=== PATIENT | female | born 1955 | race Caucasian/White ===

== ENCOUNTER 2024-06-06 08:17 | Emergency (ER) | payer OTHER ==
[~2024-06-06] VITALS: Ht 154.9 cm; Wt 67.1 kg
[2024-06-06 08:44] VITALS: TEMP 97
[2024-06-06 08:57] LABS: BASOPHILS # (AUTO) 0.1 X10'3 (0-0.2); BASOPHILS % (AUTO) 1.1 % (0-1); EOSINOPHILS # (AUTO) 0.2 X10'3 (0-0.9); EOSINOPHILS % (AUTO) 3.4 % (0-6); HEMATOCRIT 35.8 % (35.0-45.0); HEMOGLOBIN 11.3 g/dl (12.0-16.0); LYMPHOCYTES # (AUTO) 1.7 X10'3 (1.1-4.8); LYMPHOCYTES % (AUTO) 26.1 % (21-51); MEAN CORPUSCULAR HEMOGLOBIN 21.1 PG (27.0-31.0); MEAN CORPUSCULAR HGB CONC 31.5 g/dL (33.0-36.5); MEAN CORPUSCULAR VOLUME 67.2 FL (78-98); MEAN PLATELET VOLUME 7.4 FL (7.4-10.4); MONOCYTES # (AUTO) 0.4 X10'3 (0-0.9); MONOCYTES % (AUTO) 6.8 % (2-12); NEUTROPHILS % (AUTO) 62.6 % (42-75); PLATELET COUNT 384 X10'3 (140-440); RED BLOOD COUNT 5.33 X10'6 (4.20-5.60); RED CELL DISTRIBUTION WIDTH 19.1 % (11.5-14.5); WHITE BLOOD COUNT 6.3 X10'3 (4.5-11.0)
[2024-06-06 09:11] LABS: ALANINE AMINOTRANSFERASE 15 U/L (12-78); ALBUMIN 3.7 G/DL (3.4-5.0); ALKALINE PHOSPHATASE 80 IU/L (46-116); ANION GAP 8 (8-16); ASPARTATE AMINO TRANSFERASE 14 U/L (10-37); BILIRUBIN,TOTAL 0.5 MG/DL (0.1-1.0); BLOOD UREA NITROGEN 11 MG/DL (7-18); BUN/CREATININE RATIO 14.1 (10.0-20.0); CALCIUM 8.9 MG/DL (8.5-10.1); CHLORIDE 106 MMOL/L (99-107); CREATININE 0.78 MG/DL (0.40-0.90); GLUCOSE 93 MG/DL (70-104); POTASSIUM 3.9 MMOL/L (3.5-5.1); SODIUM 141 MMOL/L (135-145); TOTAL CARBON DIOXIDE 27.2 MMOL/L (24-32); TOTAL PROTEIN 7.5 G/DL (6.4-8.2); eCRCL 53 ML/MIN; eGFR 74 ML/MIN
[2024-06-06 09:18] LABS: PRO BRAIN NATRIURETIC PEPTIDE 116 PG/ML (0-125)
[2024-06-06] MEDS: nitroGLYCERIN 0.4mg SUBLingual tab SL PRN (10:00)
[2024-06-06] MEDS: aspirin 81mg tab.chew PO ONE (10:00)
[2024-06-06 10:02] LABS: ANISOCYTOSIS 2+; MICROCYTOSIS 2+; PLATELET ESTIMATE NORMAL
[2024-06-06 10:03] LABS: BURR CELLS FEW
[2024-06-06 10:04] LABS: ELLIPTOCYTES FEW; SCHISTOCYTES FEW
[2024-06-06] MEDS ORDERED: LOP25T PO (10:29)
[2024-06-06] MEDS ORDERED: NITR0.4T51 SL (10:29)
[2024-06-06 10:57] VITALS: BP 125/79; PULSE 68; RESP 13; O2SAT 98
== END 2024-06-06 10:58 | disposition home or self-care (01) ==
LOC: ER 08:18
DX: R07.9 Chest pain, unspecified (principal); E11.9 Type 2 diabetes mellitus without complications; I10 Essential (primary) hypertension; Z88.0 Allergy status to penicillin; Z88.2 Allergy status to sulfonamides; Z98.84 Bariatric surgery status
CPT/HCPCS: 36415; 71045; 80053; 83880; 84484; 85008; 85025; 93005; 99285

== ENCOUNTER 2024-06-08 13:38 | Outpatient (CLI) | payer BC ==
[~2024-06-08 13:38] MED LIST: LOP25T PO; NITR0.4T51 SL
[2024-06-08 14:09] LABS: BASOPHILS # (AUTO) 0.1 X10'3 (0-0.2); BASOPHILS % (AUTO) 1.1 % (0-1); EOSINOPHILS # (AUTO) 0.2 X10'3 (0-0.9); HEMATOCRIT 32.9 % (35.0-45.0); HEMOGLOBIN 10.4 g/dl (12.0-16.0); LYMPHOCYTES % (AUTO) 25.9 % (21-51); MEAN CORPUSCULAR HEMOGLOBIN 21.3 PG (27.0-31.0); MEAN CORPUSCULAR HGB CONC 31.7 g/dL (33.0-36.5); MEAN CORPUSCULAR VOLUME 67.2 FL (78-98); MEAN PLATELET VOLUME 7.3 FL (7.4-10.4); MONOCYTES # (AUTO) 0.4 X10'3 (0-0.9); MONOCYTES % (AUTO) 5.6 % (2-12); NEUTROPHILS # (AUTO) 4.9 X10'3 (1.8-7.7); NEUTROPHILS % (AUTO) 64.4 % (42-75); PLATELET COUNT 360 X10'3 (140-440); RED BLOOD COUNT 4.89 X10'6 (4.20-5.60); WHITE BLOOD COUNT 7.5 X10'3 (4.5-11.0)
[2024-06-08 14:24] LABS: TOTAL IRON BINDING CAPACITY 500 UG/DL (259-388)
[2024-06-08 15:07] LABS: % IRON SATURATION 3 % (11-46); IRON 16 UG/DL (49-151)
== END 2024-06-08 23:59 | disposition home or self-care (01) ==
LOC: LAB 13:38
PROVIDERS: ATTEND Nurse Practitioner
DX: D64.9 Anemia, unspecified (principal)
CPT/HCPCS: 36415; 82607; 82746; 83540; 83550; 85025

== ENCOUNTER 2024-10-12 12:23 | Emergency (ER) | payer BC ==
[~2024-10-12] VITALS: Ht 154.9 cm; Wt 59.1 kg
[~2024-10-12 12:23] MED LIST changes: -NITR0.4T51 SL
--- NOTE | 2024-10-12 12:53 | Physician Documentation ---
History of Present Illness ~ Chief Complaint: Abdominal Pain Stated Complaint: ABDOMINAL PAIN Time Seen by MD: 12:36 Primary Medical Doctor: Bess Forman Source: patient Mode of Arrival: Ambulatory Exam Limitations: no limitations HPI Chief Complaint: Abdominal pain Caveat: None Independent Historians: History of Present Illness: Patient is a healthy 69-year-old woman who comes in complaining of diffuse sharp abdominal pain that is constant but waxes and wanes. This began mid day Wednesday with the associated diarrhea. Patient has had associated nausea but no vomiting. Patient does take some opiates for chronic back pain. Patient has had a decreased now in her bowel movements. But is passing gas. No no blood in the stool. No dysuria, no urgency or frequency. No alleviating or exacerbating factors. Review of systems: All systems were reviewed and are negative except for what is indicated in the history of present illness. Past Medical History: GERD Past Surgical History: Cataract surgery today, gastric bypass with hiatal hernia repair eight years ago, abdominal wall hernia repair x2 Social History: Tobacco use, no alcohol use, no drug use Medications: Reviewed as documented Nursing Notes Allergies: Reviewed as documented in Nursing Notes Medication Reconciliation Allergies: Uncoded Allergies: PENICILLIN (Allergy, Mild, RASH, 06/06/24) SULFA (Allergy, Mild, RASH, 06/06/24) Scheduled Metoprolol Tartrate* (Lopressor tablet*), 12.5 MG PO BID Review of Systems All Other Systems at this time: Reviewed and Negative ROS Patient denies any other acute symptoms other than above. All other systems are negative Physical Exam Vital Signs: RN Vital Signs have been reviewed: Yes, Temperature: 98.2, Heart Rate: 71, Respiratory Rate: 16, BP: 142/84, Pulse Oximetry: 98, Weight: 59.090 Oxygen Flow Rate: 0 Pulse Oximetry Reflects: adequate oxygenation Physical Exam General Appearance: Mild distress HEENT: Normal OP, moist oral mucosa, PERRL, EOMI Neck: supple, normal ROM, trachea midline Pulmonary: No respiratory distress, CTA, BS equal Cardiac: RRR, no murmur, rub or gallop, GI: nondistended, soft, left lower quadrant tenderness, hyperactive bowel sounds, dull to percussion, no guarding, no rebound Extremities: normal ROM, no swelling, non-tender Skin: intact, dry, warm, no rashes Neuro: AAOx3, speech is clear, no focal motor weakness Psych: normal affect, good eye contact, no apparent hallucination, normal speech Progress Results/Orders Results/Orders Orders - MIKE MALDONADO MD Cbc/Diff (10/12/24 12:47) Urinalysis, Cult If Indicated (10/12/24 12:47) Ct Abdomen Pelvis (10/12/24 12:47) Monitor (10/12/24 12:47) Nothing By Mouth (10/12/24 Dinner) Man Diff (10/12/24 13:07) Completed Orders - MIKE MALDONADO MD Lipase (10/12/24 12:47) Ct Abdomen Pelvis (10/12/24 12:47) BMP (10/12/24 12:47) Vital Signs 10/12/24 10/12/24 10/12/24 12:24 12:44 13:30 Temp 98.2 98.5 Pulse 71 62 58 Resp 16 18 18 B/P (MAP) 142/84 145/73 (97) 123/71 (88) Pulse Ox 98 98 98 O2 Flow Rate 0 0 0 Laboratory Tests Test 10/12/24 13:07 White Blood Count 10.3 Red Blood Count 5.23 Hemoglobin 11.0 L Hematocrit 34.9 L Mean Corpuscular Volume 66.7 L Mean Corpuscular Hemoglobin 21.0 L Mean Corpuscular Hemoglobin Concent 31.5 L Red Cell Distribution Width 20.5 H Platelet Count 377 Mean Platelet Volume 7.6 Neutrophils (%) (Auto) 71.6 Lymphocytes (%) (Auto) 16.7 L Monocytes (%) (Auto) 8.2 Eosinophils (%) (Auto) 2.5 Basophils (%) (Auto) 1.0 Neutrophils # (Auto) 7.4 Lymphocytes # (Auto) 1.7 Monocytes # (Auto) 0.8 Eosinophils # (Auto) 0.3 Basophils # (Auto) 0.1 CBC Comment Sodium Level 141 Potassium Level 3.7 Chloride Level 105 Carbon Dioxide Level 25.5 Anion Gap 11 Blood Urea Nitrogen 11 Creatinine 0.82 Estimated GFR/1.73 m2 69 BUN/Creatinine Ratio 13.4 Glucose Level 97 Calcium Level 9.3 Albumin 3.6 Lipase 42 Chemistry Comments Medical Decision Making Findings Differential diagnosis includes but is not limited to: Small-bowel obstruction, acute diverticulitis, cecal volvulus, sigmoid volvulus, ileus, constipation, cholecystitis, appendicitis, pancreatitis Abdomen and pelvis CT scan without IV contrast, indication: Abdominal pain Impression: Acute diverticulitis at the proximal sigmoid colon. Cholelithiasis. Gastric sleeve surgery. Small hiatal hernia. Laboratory data independent interpretation: CBC: White blood cell count is normal at 10.3, moderate anemia with a hemoglobin of 11 BMP: Normal Lipase: Normal at 42 Emergency department course/medical decision-making: Patient presents with a abdominal pain and left lower quadrant tenderness. Patient is found to have acute sigmoid diverticulitis without perforation or abscess. Patient will be started on Cipro and Flagyl. Patient does not wish to be admitted for IV antibiotics. Patient is requesting Tylenol No. 3 for pain. Patient is afebrile and hemodynamically stable. Patient is stable for discharge. Test results treatment plan and all of the above reviewed with her and her . Departure Time of Disposition: 14:44 Disposition: 01 HOME / SELF CARE / HOMELESS Impression: Primary Impression: Diverticulitis Discharge Instructions: Diverticulitis, [id number] Additional Instructions: RETURN TO THE ER IF YOUR SYMPTOMS WORSEN. Prescriptions Acetaminophen With Codeine (Tylenol W/Codeine #3 Tab) 300 Mg-30 Mg Tablet 1 TAB PO Q6H PRN PRN for pain for 5 Days, #20 TAB Prov: MIKE MALDONADO MD 10/12/24 Ciprofloxacin HCl (Ciprofloxacin HCl) 500 Mg Tab 1 TAB PO Q12H for 10 Days, #20 TAB Prov: MIKE MALDONADO MD 10/12/24 Metronidazole* (Flagyl*) 500 Mg Tablet 1 TAB PO Q8H for 10 Days, #30 TAB Prov: MIKE MALDONADO MD 10/12/24 Education Educated: Patient, Family Educated regarding: diagnosis, treatment Signature Scribe Signature: No scribe Attestation: No scribe MIKE MALDONADO MD Oct 12, 2024 12:53
[2024-10-12 13:19] LABS: RED CELL DISTRIBUTION WIDTH 20.5 % (11.5-14.5)
[2024-10-12 13:22] LABS: MEAN PLATELET VOLUME 7.6 FL (7.4-10.4)
--- NOTE | 2024-10-12 13:33 | RADIOLOGY REPORT ---
CLINICAL HISTORY: Abdominal Pain TECHNIQUE: CT of the abdomen and pelvis was performed without IV contrast. This exam was performed ac cording to our departmental dose optimization program. Up-to-date CT equipment and radiation dose red uction techniques are utilized as appropriate. CTDI 11.6 DLP 543 COMPARISON: None FINDINGS: Abdomen/Pelvis: The spleen, pancreas, adrenal glands, kidneys, liver, and uterus are grossly unremarkable. There are gallstones. The bladder is not well distended and therefore not well evaluated. The abdominal aorta is normal in course and caliber. There are mild atherosclerotic calcifications. There is no free intraperitoneal air There is no enlarged abdominal or pelvic lymph node. There is no small bowel wall thickening or dilatation. The appendix is normal. There has been gastric sleeve surgery. There is colonic diverticulosis, [id number] designed segment. At the proximal sigmoid colon, th ere is moderate wall thickening and inflammation. There is trace of defined fluid. Other: The imaged lower thorax demonstrates a small hiatal hernia. There is a punctate coronary artery calci fication. There are a few strands of bilateral lower lung atelectasis and or scar. No acute osseous abnormality is evident. IMPRESSION: Acute diverticulitis at the proximal sigmoid colon. Cholelithiasis. Gastric sleeve surgery. Small hiatal hernia.
[2024-10-12 13:38] LABS: CREATININE 0.82 MG/DL (0.40-0.90); TOTAL CARBON DIOXIDE 25.5 MMOL/L (24-32); eCRCL 50 ML/MIN; eGFR 69 ML/MIN
[2024-10-12 14:32] LABS: EOSINOPHILS % (MANUAL) 2.0 % (0-6); LYMPHOCYTES % (MANUAL) 9.0 % (21-51); MONOCYTES % (MANUAL) 8.0 % (2-12); NEUTROPHILS % (MANUAL) 81.0 % (42-75)
[2024-10-12 14:33] LABS: PLATELET ESTIMATE NORMAL
[2024-10-12] MEDS ORDERED: CIPR-458 PO (14:48)
[2024-10-12] MEDS ORDERED: ACET-3068 PO (14:48)
[2024-10-12] MEDS ORDERED: METR-159 PO (14:48)
[2024-10-12] MEDS: ciprofloxacin 250mg tablet PO ONE (14:52)
[2024-10-12 14:55] VITALS: BP 111/63; PULSE 78; RESP 16; TEMP 98.6; O2SAT 98
== END 2024-10-12 14:59 | disposition home or self-care (01) ==
LOC: ER 12:23
DX: K57.32 Diverticulitis of large intestine without perforation or abscess without bleeding (principal); K21.9 Gastro-esophageal reflux disease without esophagitis; Z98.890 Other specified postprocedural states; Z79.899 Other long term (current) drug therapy
CPT/HCPCS: 36415; 74176; 80048; 83690; 85007; 85025; 99284

== ENCOUNTER 2025-01-01 14:23 | Outpatient (CLI) | payer BC ==
[2025-01-01 15:16] LABS: % IRON SATURATION 4 % (11-46)
[2025-01-02 10:02] LABS: MEAN PLATELET VOLUME 7.5 FL (7.4-10.4); RED CELL DISTRIBUTION WIDTH 20.5 % (11.5-14.5)
[2025-01-02 10:18] LABS: PLATELET ESTIMATE NORMAL
[2025-01-02 10:19] LABS: ELLIPTOCYTES FEW; LARGE PLATELETS FEW
== END 2025-01-01 23:59 | disposition home or self-care (01) ==
LOC: LAB 14:23
PROVIDERS: ATTEND Nurse Practitioner
DX: D64.9 Anemia, unspecified (principal)
CPT/HCPCS: 36415; 82607; 82728; 82746; 83540; 83550; 85008; 85025

== ENCOUNTER 2025-01-02 11:45 | Outpatient (CLI) | payer BC ==
--- NOTE | 2025-01-02 12:41 | RADIOLOGY REPORT ---
EXAM: DI SHOULDER, COMPLETE (MIN 2 VWS) CLINICAL INDICATION: LEFT SHOULDER PAIN TECHNIQUE: DI SHOULDER, COMPLETE (MIN 2 VWS) Comparison: DI CHEST,SINGLE VIEW on DOS: 06/06/24 FINDINGS/IMPRESSION: There is no evidence of acute fracture or dislocation. The visualized joint space is well maintained. The alignment is anatomical. There is no radiopaque foreign body.
== END 2025-01-02 23:59 | disposition home or self-care (01) ==
LOC: RAD 11:45
PROVIDERS: ATTEND Nurse Practitioner
DX: M25.512 Pain in left shoulder (principal)
CPT/HCPCS: 73030

== ENCOUNTER 2025-02-08 09:16 | Day surgery (SDC) | payer BC ==
[2025-02-08] VITALS (7 sets, daily range): BP systolic 96–139; BP diastolic 56–87; PULSE 53–69; RESP 12–16; TEMP 97.3–98; O2SAT 97–99
[~2025-02-08] VITALS: Ht 154.9 cm; Wt 56.8 kg
[~2025-02-08 09:16] MED LIST changes: +ACET-3068 PO; +ESOM40CA66 PO; -LOP25T PO; +TIRZ2.5P3 SQ; +ringers solution, lacted 1,000 ML IV SCH
[2025-02-08] MEDS ORDERED: LIDOcaine 2% Viscous 15ml cup ONE ×2 (11:19→14:08)
[2025-02-08] MEDS ORDERED: propofol inj 20 ML IV ONE ×3 (14:35→14:37)
== END 2025-02-08 15:50 | disposition home or self-care (01) ==
LOC: GI LAB 09:16
PROVIDERS: ATTEND Internal Medicine Gastroenterology
DX: D50.0 Iron deficiency anemia secondary to blood loss (chronic) (principal); K57.30 Diverticulosis of large intestine without perforation or abscess without bleeding; K64.8 Other hemorrhoids; K21.00 Gastro-esophageal reflux disease with esophagitis, without bleeding; K44.9 Diaphragmatic hernia without obstruction or gangrene; E11.9 Type 2 diabetes mellitus without complications; Z79.82 Long term (current) use of aspirin; Z79.899 Other long term (current) drug therapy; Z90.89 Acquired absence of other organs; Z98.84 Bariatric surgery status; Z98.51 Tubal ligation status; Z98.890 Other specified postprocedural states; Z88.0 Allergy status to penicillin; Z88.2 Allergy status to sulfonamides
CPT/HCPCS: 43239; 45378; J2704; J7120; Z7512; A4615

== ENCOUNTER 2025-02-26 11:12 | Outpatient (CLI) | payer BC ==
[~2025-02-26 11:12] MED LIST changes: -ringers solution, lacted 1,000 ML IV SCH
--- NOTE | 2025-02-26 13:52 | RADIOLOGY REPORT ---
CLINICAL INFORMATION: PAIN IN LEFT SHOULDER. TECHNIQUE: Multisequence multiplanar MRI images of the left shoulder were obtained without contrast. COMPARISON: Radiographs dated 01/02/2025. FINDINGS: Acromioclavicular joint: There is mild acromioclavicular hypertrophy and mild edema. There is downward sloping acromion. Moderate fluid in the subacromial / subdeltoid bursa. Rotator cuff tendons: [id number] tendinosis of the distal supraspinatus and infraspinatus tendons. There is an obliquely oriented partial-thickness tear in the supraspinatus tendon, poorly delineated due to motion artifact, measures approximately 0.9 cm in AP dimension and up to 0.5 cm in proximal to distal dimension, involving greater than 50% of the tendon thickness, appears to extend to the bursal surface. Mild tendinosis of the distal subscapularis tendon without visualized tear. Teres minor tendon is intact. Biceps tendon: No significant tendinosis. No evidence of attrition or tear. Labrum: No labral tear identified. Bones: No fracture or focal marrow contusion. Muscles: Normal muscle bulk. No atrophy. Other: Motion limited study. IMPRESSION: 1. Motion limited study. 2. Rotator cuff tendinosis with partial-thickness tear of the supraspinatus tendon, somewhat obliquely oriented, with extension to the bursal surface and involving greater than 50% of the tendon thickness. Portions of the tear approach near full-thickness. 3. Mild acromioclavicular hypertrophy with moderate subacromial/subdeltoid bursitis. 4. Additional findings as described above.
== END 2025-02-26 23:59 | disposition home or self-care (01) ==
LOC: MRI02 11:12
PROVIDERS: ATTEND Nurse Practitioner
DX: M75.102 Unspecified rotator cuff tear or rupture of left shoulder, not specified as traumatic (principal); M25.512 Pain in left shoulder; M75.51 Bursitis of right shoulder; M89.311 Hypertrophy of bone, right shoulder
CPT/HCPCS: 73221